=== PATIENT | female | born 1950 | race African-American/Black ===

== ENCOUNTER → 2021-05-12 | Outpatient (CLI) | payer OTHER ==
[2017-05-05 11:00] VITALS: BP 136/61
[~2021-05-12] MED LIST: METO10TA81 PO; POTA10TA12 PO
--- NOTE | 2021-05-12 15:57 | RAD ---
EXAM: Right buttock sonogram. HISTORY: Pain status post remote gluteal and thigh lesion excision. TECHNIQUE: Sonographic imaging of the medial right gluteal region at the site of reported pain was pe rformed. COMPARISON: None. FINDINGS: There is no suspicious finding within the medial right buttock at the site of reported pain . No mass or fluid collection is seen. IMPRESSION: Sonographic imaging of the medial right gluteal region. Continued clinical follow-up of p alpable abnormalities is recommended. Cross-sectional imaging can be performed if there is concern fo r sonographically occult lesion. Electronically signed by: Isabela Miller MD (05/12/2021 3:55 PM) [id number]
== END ==
LOC: US 14:53
PROVIDERS: ATTEND Surgery
DX: M79.18 Myalgia, other site (principal)
CPT/HCPCS: 76881